=== PATIENT | male | born 1965 | race Caucasian/White ===

== ENCOUNTER 2017-12-31 18:33 | Inpatient (IN) | payer MEDICARE, MEDICAID ==
[2018-01-01] MEDS ORDERED: OLANZapine ORAL DISINTEGRATING TAB 5MG PO (01:00)
[2018-01-01] MEDS ORDERED: MAALOX 30 ML SUSP *UDC PO (01:00)
[2018-01-01] MEDS ORDERED: hydrOXYzine 25 MG TAB PO (01:00)
[2018-01-01] MEDS: NICOTINE 21MG/24HR 1 EA TRANSDERMAL TD ×2 (01:00→09:00)
[2018-01-01] MEDS: traZODone 50 MG TAB PO (02:37)
[2018-01-01] MEDS: busPIRone 5 MG TAB PO ×3 (11:41→20:45)
[2018-01-01] MEDS: GABAPENTIN 300 MG CAP PO ×3 (11:41→20:45)
[2018-01-01] MEDS: hydrOXYzine 50 MG TAB PO (11:41)
[2018-01-01] MEDS: NORTRIPTYLINE 25 MG CAP PO (12:18)
[2018-01-01] MEDS: IBUPROFEN 400 MG TAB PO (20:45)
[2018-01-02] MEDS ORDERED: UNRESOLVED CLARIFICATION ENTRY XX (00:01)
[2018-01-02] MEDS: NICOTINE 21MG/24HR 1 EA TRANSDERMAL TD (09:00)
[2018-01-02] MEDS: GABAPENTIN 300 MG CAP PO ×3 (09:49→20:15)
[2018-01-02] MEDS: busPIRone 5 MG TAB PO ×3 (09:49→20:15)
[2018-01-02] MEDS: NORTRIPTYLINE 25 MG CAP PO (09:50)
[2018-01-02] MEDS: MOM 30ML SUSPENSION UDC PO (09:52)
[2018-01-02] MEDS: IBUPROFEN 400 MG TAB PO (11:50)
[2018-01-02] MEDS: MAGNESIUM CITRATE 300 ML BTL PO (17:16)
[2018-01-02] MEDS: KETOROLAC TROMETHAMINE 10 MG TAB PO (20:34)
[2018-01-02] MEDS: ACETAMINOPHEN TAB 650MG DOSE (2X325MG) PO (23:20)
[2018-01-03] MEDS: traZODone 50 MG TAB PO (00:30)
[2018-01-03] MEDS: ACETAMINOPHEN TAB 650MG DOSE (2X325MG) PO (05:53)
[2018-01-03] MEDS: GABAPENTIN 300 MG CAP PO (08:48)
[2018-01-03] MEDS: KETOROLAC TROMETHAMINE 10 MG TAB PO (08:49)
[2018-01-03] MEDS: NORTRIPTYLINE 25 MG CAP PO (08:49)
[2018-01-03] MEDS: busPIRone 5 MG TAB PO (08:49)
[2018-01-03] MEDS: NICOTINE 21MG/24HR 1 EA TRANSDERMAL TD (08:49)
== END 2018-01-03 11:35 | disposition home or self-care (01) | DRG 882 ==
LOC: M ED 18:33 → M ED INP 22:08 → M PSY 23:36
DX: F43.23 Adjustment disorder with mixed anxiety and depressed mood (principal); R45.851 Suicidal ideations; F10.10 Alcohol abuse, uncomplicated; F12.90 Cannabis use, unspecified, uncomplicated; F11.90 Opioid use, unspecified, uncomplicated; Z79.899 Other long term (current) drug therapy; Z88.8 Allergy status to other drugs, medicaments and biological substances; M54.5 Low back pain; I25.10 Atherosclerotic heart disease of native coronary artery without angina pectoris; I25.2 Old myocardial infarction; G89.29 Other chronic pain; I10 Essential (primary) hypertension; F17.200 Nicotine dependence, unspecified, uncomplicated; Z88.5 Allergy status to narcotic agent

== ENCOUNTER 2018-04-04 13:30 | Emergency (ER) | payer MEDICARE, MEDICAID ==
[2018-04-04 14:47] LABS: BASO # 0.1 10^3/uL (0.0-0.2); BASO % 0.6 % (0.0-1.0); EOS % 0.4 % (0.0-3.0); HEMATOCRIT 42.8 % (42.0-52.0); HEMOGLOBIN 15.3 g/dl (13.5-17.5); IMMATURE GRANULOCYTE % 0.3 % (0-3.0); LYMPH # 1.6 10^3/uL (1.5-4.5); LYMPH % 20.3 % (24.0-44.0); MEAN CORPUSCULAR HEMOGLOBIN 32.8 pg (27.0-33.0); MEAN CORPUSCULAR HGB CONC 35.7 g/dl (32.0-36.5); MEAN CORPUSCULAR VOLUME 91.6 fl (80.0-96.0); MONO # 0.4 10^3/uL (0.0-0.8); MONO % 5.5 % (0.0-5.0); NEUTROPHILS # 5.7 10^3/uL (1.8-7.7); NEUTROPHILS % 72.9 % (36.0-66.0); PLATELET COUNT, AUTOMATED 194 10^3/uL (150-450); RED BLOOD COUNT 4.67 10^6/uL (4.30-6.10); RED CELL DISTRIBUTION WIDTH 12.3 % (11.5-14.5); WHITE BLOOD COUNT 7.8 10^3/uL (4.0-10.0)
[2018-04-04 14:50] LABS: KETONE, URINE AUTO RFX NEGATIVE (NEGATIVE); LEUKOCYTE ESTERASE UR AUTO RFX NEGATIVE (NEGATIVE); NITRITE, URINE AUTO RFX NEGATIVE (NEGATIVE); RBC, URINE AUTO RFX 1 /HPF (0-3); SPECIFIC GRAVITY UR AUTO RFX 1.003 (1.002-1.035); SQUAM EPITHELIAL CELL UR AURFX 0 /HPF (0-6); WBC, URINE AUTO RFX 0 /HPF (0-3)
[2018-04-04 15:09] LABS: ANION GAP 7 MEQ/L (8-16); BLOOD UREA NITROGEN 12 MG/DL (7-18); CALCIUM LEVEL 8.9 MG/DL (8.5-10.1); CARBON DIOXIDE LEVEL 28 MEQ/L (21-32); CHLORIDE LEVEL 106 MEQ/L (98-107); CREATININE FOR GFR 1.23 MG/DL (0.70-1.30); GLOMERULAR FILTRATION RATE > 60.0 (>56); GLUCOSE, FASTING 99 MG/DL (70-100); POTASSIUM SERUM 3.7 MEQ/L (3.5-5.1); SODIUM LEVEL 141 MEQ/L (136-145)
[2018-04-04 15:46] LABS: TROPONIN I < 0.02 NG/ML (< 0.10)
[2018-04-04 15:47] LABS: CK-MB VALUE MASS < 1.0 NG/ML (<3.6); CPK CREATINE PHOSPHOKINASE 85 U/L (39-308); MB/CK RELATIVE INDEX 1.17 (< OR =4)
[2018-04-04] MEDS: NS 1,000 ML IV (16:21)
[2018-04-04] MEDS: ONDANSETRON 4MG/2ML VIAL (J2405) IV (16:21)
[2018-04-04 16:28] LABS: CHLAMYDIA DNA AMPLIFICATION NEGATIVE (NEGATIVE); GC DNA AMPLIFICATION NEGATIVE (NEGATIVE)
[2018-04-04] MEDS ORDERED: cefTRIAXone SOD 250 MG VIAL (J0696) IV (17:00)
[2018-04-04] MEDS: cefTRIAXone SOD 250 MG in D5W MINI-BAG PLUS 50 ML IV (17:12)
== END 2018-04-04 18:10 | disposition home or self-care (01) ==
LOC: M ED 13:30
DX: R30.0 Dysuria (principal); N45.2 Orchitis; H93.19 Tinnitus, unspecified ear; I25.10 Atherosclerotic heart disease of native coronary artery without angina pectoris; I25.2 Old myocardial infarction; F17.200 Nicotine dependence, unspecified, uncomplicated
CPT/HCPCS: J2405

== ENCOUNTER 2018-04-11 14:27 | Emergency (ER) | payer MEDICARE, MEDICAID ==
[2018-04-11 15:13] LABS: HEMATOCRIT 42.3 % (42.0-52.0); MEAN CORPUSCULAR HEMOGLOBIN 32.8 pg (27.0-33.0); MEAN CORPUSCULAR HGB CONC 35.5 g/dl (32.0-36.5); MEAN CORPUSCULAR VOLUME 92.6 fl (80.0-96.0); PLATELET COUNT, AUTOMATED 198 10^3/uL (150-450); RED BLOOD COUNT 4.57 10^6/uL (4.30-6.10)
[2018-04-11 15:17] LABS: KETONE, URINE AUTO RFX NEGATIVE (NEGATIVE); LEUKOCYTE ESTERASE UR AUTO RFX NEGATIVE (NEGATIVE); NITRITE, URINE AUTO RFX NEGATIVE (NEGATIVE); RBC, URINE AUTO RFX 2 /HPF (0-3); SQUAM EPITHELIAL CELL UR AURFX 0 /HPF (0-6); WBC, URINE AUTO RFX 1 /HPF (0-3)
[2018-04-11] MEDS: NAPROXEN 250 MG TAB PO (15:45)
== END 2018-04-11 16:13 | disposition home or self-care (01) ==
LOC: M ED 14:27
DX: N45.2 Orchitis (principal); I10 Essential (primary) hypertension; G89.29 Other chronic pain; Z88.5 Allergy status to narcotic agent; Z88.8 Allergy status to other drugs, medicaments and biological substances; Z91.048 Other nonmedicinal substance allergy status; F17.210 Nicotine dependence, cigarettes, uncomplicated
CPT/HCPCS: 85027

== ENCOUNTER → 2018-04-22 | Outpatient (REF) | payer MEDICARE, MEDICAID ==
[2018-04-22 13:53] LABS: APPEARANCE, URINE CLEAR (CLEAR); BACTERIA, URINE AUTO NEGATIVE (NEGATIVE); BILIRUBIN, URINE AUTO NEGATIVE (NEGATIVE); BLOOD, URINE BLOOD NEGATIVE (NEGATIVE); COLOR, URINE YELLOW (YELLOW); GLUCOSE, URINE (UA) AUTO NEGATIVE (NEGATIVE); KETONE, URINE AUTO TRACE mg/dL (NEGATIVE); LEUKOCYTE ESTERASE, URINE AUTO NEGATIVE (NEGATIVE); MUCUS, URINE SMALL (NEGATIVE); NITRITE, URINE AUTO NEGATIVE (NEGATIVE); PROTEIN, URINE AUTO NEGATIVE (NEGATIVE); RBC, URINE AUTO 9 /HPF (0-3); SQUAMOUS EPITHELIAL CELL UR AU 0 /HPF (0-6); WBC, URINE AUTO 0 /HPF (0-3)
[2018-04-22 15:35] LABS: CHLAMYDIA DNA AMPLIFICATION NEGATIVE (NEGATIVE); GC DNA AMPLIFICATION NEGATIVE (NEGATIVE)
== END ==
LOC: M SMT 13:12
DX: N45.2 Orchitis (principal); N50.819 Testicular pain, unspecified; N48.89 Other specified disorders of penis
CPT/HCPCS: 81001

== ENCOUNTER → 2018-04-24 | Outpatient (CLI) | payer MEDICARE, MEDICAID | LOC: M RAD 10:44 | DX: N50.819 Testicular pain, unspecified (principal) | CPT/HCPCS: 74176 ==

== ENCOUNTER 2018-11-10 01:09 | Emergency (ER) | payer MEDICARE, MEDICAID ==
[~2018-11-10] VITALS: Ht 175.3 cm; Wt 77.3 kg
[~2018-11-10 01:09] MED LIST: BUSP5TA PO; CEPH500C; CLON1TAB8 PO; CLOT1CRE; DOXY100C37 PO; GABA-843 PO; HYDRO50TAB PO; IBUP80TA PO; KETO10TAB PO; NAPR-837 PO; NORT25CA2 PO; OXYC10TA3 PO; PROTPAK PO; PYRI1TAB5 PO
[2018-11-10] MEDS ORDERED: PANT40TA3 (01:27)
[2018-11-10] MEDS ORDERED: LORA-243 (01:27)
[2018-11-10] MEDS ORDERED: ALBU17IN2 INH (03:15)
[2018-11-10] MEDS ORDERED: NORCO, ANEXSIA 5/325MG TABLET (HYDROcodone/ACETAMINOPHEN) PO ONE (03:15)
[2018-11-10] MEDS ORDERED: DOXY100C37 PO (03:15)
[2018-11-10] MEDS ORDERED: LISINOPRIL 20 MG TAB PO ONE (03:30)
[2018-11-10 03:33] VITALS: BP 160/108
[2018-11-10 03:34] VITALS: BP 146/108
--- NOTE | 2018-11-10 09:12 | REP ---
Clinical: Cough . Comparison: 04/04/2018 . Technique: PA and lateral. Findings: The mediastinum and cardiac silhouette are normal. The lung qiu are clear and without acute consolidation, effusion, or pneumothorax. The skeletal structures are intact and normal. Impression: 1. No acute cardiopulmonary process. Electronically Signed by Dima Tomas MD 11/10/2018 09:04 A
--- NOTE | 2018-11-10 11:18 | ECGEPIP ---
Stationary ECG Study [facility] - ED Test Date: 2018-11-10 Pat Name: LEIA LEY JR Department: Room: - Gender: M Director Of Enrollment: af : 1965 Requested By: Jorge Mane Order Number: [id number] Reading MD: Gigi Castro Measurements Intervals Serafina Rate: 97 P: 66 MA: 160 QRS: -3 QRSD: 93 T: 57 QT: 339 QTc: 432 Interpretive Statements SINUS RHYTHM ANTEROSEPTAL MYOCARDIAL INFARCTION, OF INDETERMINATE AGE NONSPECIFIC ST T WAVE CHANGES POSSIBLE LAE CW 06/25/[address] T WAVE CHANGES Electronically Signed On 11-10-2018 11:18:23 EDT by Gigi Castro
== END 2018-11-10 03:41 | disposition home or self-care (01) ==
LOC: M ED 01:09
DX: J40 Bronchitis, not specified as acute or chronic (principal); M54.9 Dorsalgia, unspecified; G89.29 Other chronic pain; F41.9 Anxiety disorder, unspecified; F17.200 Nicotine dependence, unspecified, uncomplicated; Z87.81 Personal history of (healed) traumatic fracture; Z91.048 Other nonmedicinal substance allergy status; Z88.8 Allergy status to other drugs, medicaments and biological substances; Z88.5 Allergy status to narcotic agent; Z79.899 Other long term (current) drug therapy

== ENCOUNTER → 2019-05-13 | Outpatient (REF) | payer MEDICARE, MEDICAID ==
[~2019-05-13] MED LIST changes: +HYDR1TAB33 PO; -HYDRO50TAB PO; +LORA-243; +PANT40TA3; +PROV108A INH
[2019-05-13 13:05] LABS: BASO # 0.1 10^3/uL (0.0-0.2); BASO % 0.9 % (0.0-1.0); EOS # 0.7 10^3/uL (0.0-0.5); EOS % 7.4 % (0.0-3.0); HEMATOCRIT 46.6 % (42.0-52.0); HEMOGLOBIN 15.6 g/dl (13.5-17.5); LYMPH # 2.4 10^3/uL (1.5-5.0); LYMPH % 27.1 % (24.0-44.0); MEAN CORPUSCULAR HEMOGLOBIN 31.1 pg (27.0-33.0); MEAN CORPUSCULAR HGB CONC 33.5 g/dl (32.0-36.5); MEAN CORPUSCULAR VOLUME 92.8 fl (80.0-96.0); MONO # 0.7 10^3/uL (0.0-0.8); MONO % 7.3 % (0.0-5.0); NEUTROPHILS # 5.1 10^3/uL (1.5-8.5); NEUTROPHILS % 57.1 % (36.0-66.0); PLATELET COUNT, AUTOMATED 191 10^3/uL (150-450); RED BLOOD COUNT 5.02 10^6/uL (4.30-6.10); WHITE BLOOD COUNT 8.9 10^3/uL (4.0-10.0)
[2019-05-13 13:23] LABS: ALBUMIN 4.7 GM/DL (3.2-5.2); ALT/SGPT 13 U/L (12-78); BILIRUBIN,TOTAL 0.8 MG/DL (0.2-1.0); BLOOD UREA NITROGEN 15 MG/DL (7-18); CALCIUM LEVEL 9.3 MG/DL (8.5-10.1); CARBON DIOXIDE LEVEL 30 MEQ/L (21-32); CHLORIDE LEVEL 108 MEQ/L (98-107); CHOLESTEROL LEVEL 165 MG/DL (<200); CHOLESTEROL RISK RATIO 4.342 (<5); CREATININE FOR GFR 1.27 MG/DL (0.70-1.30); FREE T4 1.28 NG/DL (0.76-1.46); GLOMERULAR FILTRATION RATE > 60.0 (>56); GLUCOSE, FASTING 83 MG/DL (70-100); HDL CHOLESTEROL 38 MG/DL (>40); LDL CHOLESTEROL 111 MG/DL (<100); NON-HDL-C 127 MG/DL; POTASSIUM SERUM 4.2 MEQ/L (3.5-5.1); SODIUM LEVEL 143 MEQ/L (136-145); TOTAL PROTEIN 7.5 GM/DL (6.4-8.2); TRIGLYCERIDES LEVEL 80 MG/DL (<150)
== END ==
LOC: M SFHCADAM 08:39
PROVIDERS: ATTEND Physician Assistant Medical
DX: K21.9 Gastro-esophageal reflux disease without esophagitis (principal); F12.10 Cannabis abuse, uncomplicated; I10 Essential (primary) hypertension; F41.0 Panic disorder [episodic paroxysmal anxiety]
CPT/HCPCS: 80053; 80061; 84439; 84443; 84600; 85025; G0480

== ENCOUNTER → 2019-05-23 | Outpatient (REF) | payer MEDICARE, MEDICAID ==
[2019-05-23 10:59] LABS: PLATELET COUNT, AUTOMATED 229 10^3/uL (150-450)
[2019-05-23 11:08] LABS: INR 1.06; PROTHROMBIN TIME 13.5 SECONDS (11.8-14.0)
[2019-05-23 11:09] LABS: PARTIAL THROMBOPLASTIN TIME 26.9 SECONDS (25.0-38.4)
== END ==
LOC: M LABDRAW1 09:14
PROVIDERS: ATTEND Physical Medicine & Rehabilitation
DX: Z01.812 Encounter for preprocedural laboratory examination (principal); M50.320 Other cervical disc degeneration, mid-cervical region, unspecified level; Z79.899 Other long term (current) drug therapy

== ENCOUNTER → 2019-05-28 | Outpatient (CLI) | payer MEDICARE, MEDICAID ==
--- NOTE | 2019-05-28 15:13 | REP ---
REASON FOR EXAM: Testicular pain. COMPARISON: 03/15/2018 which showed a 7 mm sized tunica cyst on the right and a left-sided varicocele. Incidental bilateral spermatoceles were also noted. Today's examination shows the testicles to be essentially unchanged in size, shape, and echo pattern. The right testicle measures 5.2 x 2 x 2.8 cm and the left testicle measure 4.6 x 1.7 x 2.5 cm. The testicular parenchymal echo pattern and vascular pattern are within normal limits bilaterally and essentially unchanged. The cysts seen on the right is unchanged and the bilateral spermatoceles are unchanged. The right testicular RI is 0.43 and the left is 0.60. Dzso-wt-[id number] imaging shows no evidence of a mass. There is slight heterogeneity in the testicular echo pattern but this is unchanged. The left-sided varicocele seen on the prior exam is also noted today and appears to be unchanged. IMPRESSION: No significant change when compared to the prior exam with findings as described above. Electronically Signed by Sanchez Felipe DO 05/28/2019 03:51 P
== END ==
LOC: M RAD 12:13
PROVIDERS: ATTEND Nurse Practitioner Family
DX: N44.1 Cyst of tunica albuginea testis (principal); N50.89 Other specified disorders of the male genital organs

== ENCOUNTER → 2019-06-02 | Outpatient (REF) | payer MEDICARE, MEDICAID ==
[2019-06-02 14:12] LABS: APPEARANCE, URINE CLEAR (CLEAR); BACTERIA, URINE AUTO NEGATIVE (NEGATIVE); BILIRUBIN, URINE AUTO NEGATIVE (NEGATIVE); BLOOD, URINE BLOOD 1+ (NEGATIVE); COLOR, URINE YELLOW (YELLOW); GLUCOSE, URINE (UA) AUTO NEGATIVE (NEGATIVE); KETONE, URINE AUTO NEGATIVE (NEGATIVE); LEUKOCYTE ESTERASE, URINE AUTO NEGATIVE (NEGATIVE); MUCUS, URINE SMALL (NEGATIVE); NITRITE, URINE AUTO NEGATIVE (NEGATIVE); PROTEIN, URINE AUTO NEGATIVE (NEGATIVE); RBC, URINE AUTO 4 /HPF (0-3); SPECIFIC GRAVITY URINE AUTO 1.013 (1.002-1.035); SQUAMOUS EPITHELIAL CELL UR AU 0 /HPF (0-6); UROBILINOGEN, URINE AUTO 0.2 mg/dL (0.0-2.0); WBC, URINE AUTO 0 /HPF (0-3)
[2019-06-02 15:52] LABS: CHLAMYDIA DNA AMPLIFICATION NEGATIVE (NEGATIVE); GC DNA AMPLIFICATION NEGATIVE (NEGATIVE)
== END ==
LOC: M SMT 13:30
PROVIDERS: ATTEND Nurse Practitioner Family
DX: N50.819 Testicular pain, unspecified (principal)
CPT/HCPCS: 81001; 87086; 87491; 87591; G0463

== ENCOUNTER → 2019-06-05 | Outpatient (CLI) | payer MEDICARE, MEDICAID ==
--- NOTE | 2019-06-05 16:07 | REP ---
REASON: Chronic back pain. PRIORS: None. After the intravenous administration of 22.0 millicuries of Technetium 99M MDP a total body bone scan was obtained. There is minimal increased radionuclide accumulation seen at the level of the superior endplate of L2 on the left. This is likely the result of degenerative change. No other areas of frankly abnormal increased or decreased radionuclide accumulation is seen in the imaged axial or appendicular skeleton. IMPRESSION: Minimal findings as described above. Consider MRI. Electronically Signed by Sanchez Felipe DO 06/05/2019 04:58 P
== END ==
LOC: M RAD 10:26
PROVIDERS: ATTEND Physical Medicine & Rehabilitation
DX: M47.812 Spondylosis without myelopathy or radiculopathy, cervical region (principal)
CPT/HCPCS: 78306; A9503

== ENCOUNTER → 2019-11-10 | Outpatient (REF) | payer MEDICARE, MEDICAID ==
[~2019-11-10] MED LIST changes: +BREO1INH
[2019-11-10 17:16] LABS: BASO # 0.1 10^3/uL (0.0-0.2); BASO % 0.6 % (0.0-1.0); EOS # 0.1 10^3/uL (0.0-0.5); EOS % 0.8 % (0.0-3.0); HEMATOCRIT 45.8 % (42.0-52.0); HEMOGLOBIN 15.4 g/dl (13.5-17.5); LYMPH # 2.5 10^3/uL (1.5-5.0); LYMPH % 31.6 % (24.0-44.0); MEAN CORPUSCULAR HEMOGLOBIN 31.4 pg (27.0-33.0); MEAN CORPUSCULAR HGB CONC 33.6 g/dl (32.0-36.5); MEAN CORPUSCULAR VOLUME 93.5 fl (80.0-96.0); MONO # 0.5 10^3/uL (0.0-0.8); MONO % 6.4 % (0.0-5.0); NEUTROPHILS # 4.7 10^3/uL (1.5-8.5); NEUTROPHILS % 60.3 % (36.0-66.0); PLATELET COUNT, AUTOMATED 182 10^3/uL (150-450); WHITE BLOOD COUNT 7.8 10^3/uL (4.0-10.0)
[2019-11-10 17:41] LABS: ALBUMIN 4.4 GM/DL (3.2-5.2); ALT/SGPT 13 U/L (12-78); BLOOD UREA NITROGEN 13 MG/DL (7-18); C REACTIVE PROTEIN QUANTITATIV < 0.30 MG/DL (0.00-0.30); CARBON DIOXIDE LEVEL 31 MEQ/L (21-32); CHLORIDE LEVEL 106 MEQ/L (98-107); CREATININE FOR GFR 1.06 MG/DL (0.70-1.30); FREE T4 1.16 NG/DL (0.76-1.46); GLOMERULAR FILTRATION RATE > 60.0 (>56); GLUCOSE, FASTING 78 MG/DL (70-100); LDH LACTATE DEHYDROGENASE 112 U/L (87-241); POTASSIUM SERUM 4.3 MEQ/L (3.5-5.1); SODIUM LEVEL 140 MEQ/L (136-145); TOTAL PROTEIN 7.1 GM/DL (6.4-8.2)
[2019-11-10 17:52] LABS: ERYTHROCYTE SEDIMENTATION RATE 1 mm/hr (0-20)
== END ==
LOC: M SFHCADAM 15:20
PROVIDERS: ATTEND Family Medicine
DX: R63.4 Abnormal weight loss (principal); M54.5 Low back pain; F32.9 Major depressive disorder, single episode, unspecified; R07.81 Pleurodynia

== ENCOUNTER → 2019-11-10 | Outpatient (CLI) | payer MEDICARE, MEDICAID ==
--- NOTE | 2019-11-10 17:48 | REP ---
HISTORY: Rib pain. COMPARISON: 11/10/2018. The lung qiu are hyperexpanded but clear and essentially unchanged from the prior exam. No acute patchy parenchymal opacities or pleural effusions have developed. The heart is not enlarged. The osseous structures are stable and intact. IMPRESSION: Lung field hyperexpansion without evidence of acute cardiopulmonary disease. Electronically Signed by Sanchez Felipe DO 11/11/2019 08:46 A
--- NOTE | 2019-11-10 17:50 | REP ---
LUMBOSACRAL SPINE, FIVE VIEWS: Five views of the lumbosacral spine are performed. There is no compression fracture or malalignment. There are metallic disc spacers at L4-5 and L5-S1 levels. There is mild to moderate diffuse spurring. Moderate sclerosis and spurring is seen at the facet joints of L5-S1. Posterior elements appear intact. There is curvature of the thoracolumbar spine convex to the right. IMPRESSION: Metallic disc spacers at L4-5 and L5-S1. Normal alignment with mild curvature toward the right. Mild degenerative changes. Electronically Signed by Krunal Carrington MD 11/11/2019 10:28 A
== END ==
LOC: M ADAMS 15:24
PROVIDERS: ATTEND Family Medicine
DX: M54.5 Low back pain (principal); R07.81 Pleurodynia; R63.4 Abnormal weight loss; F32.9 Major depressive disorder, single episode, unspecified
CPT/HCPCS: 71046; 72110; 80053; 83615; 84439; 84443; 85025; 85652; 86140; G0463

== ENCOUNTER → 2020-04-05 | Outpatient (CLI) | payer MEDICARE, MEDICAID ==
[~2020-04-05] MED LIST changes: -BREO1INH; +BREO1INH INH; -CLOT1CRE; +CLOT1CRE51; -LORA-243; +LORA-243 PO; +PANT40TA29 PO; -PANT40TA3
--- NOTE | 2020-04-09 08:32 | REP ---
LEFT ANKLE X-RAY: 4-VIEWS COMPARISON: None. FINDINGS: There is no evidence of an acute fracture. The mortise is intact. There is no evidence of significant soft tissue swelling. IMPRESSION: Negative examination. MTDD
== END ==
LOC: M ADAMS 15:18
PROVIDERS: ATTEND Physician Assistant
DX: M25.572 Pain in left ankle and joints of left foot (principal)

== ENCOUNTER 2020-05-31 09:16 | Emergency (ER) | payer MEDICARE, MEDICAID ==
[~2020-05-31] VITALS: Ht 175.3 cm; Wt 61.4 kg
--- NOTE | 2020-05-31 09:41 | REPVR ---
PROCEDURE INFORMATION: Exam: XR Right Foot Exam date and time: 05/31/2020 9:24 AM Age: 55 years old Clinical indication: Injury or trauma; Other: Stepped on glass; Laceration; Foot; Right; Foreign body involvement not specified; Additional info: Laceration, R/O foreign body TECHNIQUE: Imaging protocol: XR Right foot. Views: 1 or 2 views. COMPARISON: DX ANKLE COMPLETE 04/05/2020 3:04 PM FINDINGS: Bones/joints: Incidental accessory navicular. No acute fracture. No dislocation. Soft tissues: No radiopaque foreign body. IMPRESSION: No acute osseous abnormality or radiopaque foreign body. Electronically signed by: Radha Ibarra On 05/31/2020 09:41:15 AM
[2020-05-31] MEDS ORDERED: DERMABOND TOPICAL SKIN ADHESIVE TOP ONE (10:15)
[2020-05-31 10:43] VITALS: BP 132/89
== END 2020-05-31 11:10 | disposition home or self-care (01) ==
LOC: M ED 09:16 → EDBD 09:16 → M ED 11:10
DX: S91.114A Laceration without foreign body of right lesser toe(s) without damage to nail, initial encounter (principal); W25.XXXA Contact with sharp glass, initial encounter; Y92.098 Other place in other non-institutional residence as the place of occurrence of the external cause; F32.9 Major depressive disorder, single episode, unspecified; F41.9 Anxiety disorder, unspecified; M54.9 Dorsalgia, unspecified; J44.9 Chronic obstructive pulmonary disease, unspecified; I10 Essential (primary) hypertension; F17.200 Nicotine dependence, unspecified, uncomplicated; Z88.5 Allergy status to narcotic agent; Z88.8 Allergy status to other drugs, medicaments and biological substances; Z91.048 Other nonmedicinal substance allergy status; Z79.899 Other long term (current) drug therapy; Z79.1 Long term (current) use of non-steroidal anti-inflammatories (NSAID)

== ENCOUNTER → 2021-02-10 | Outpatient (CLI) | payer MEDICARE, MEDICAID ==
[~2021-02-10] MED LIST changes: -DOXY100C37 PO; +DOXY1CAP62 PO; +GABA-282 PO; -GABA-843 PO
--- NOTE | 2021-02-10 15:22 | REP ---
INDICATION: OTHER INSTABILITY. COMPARISON: None. TECHNIQUE: Multiple views FINDINGS: The glenohumeral and acromioclavicular relationships are normal. There is no fracture, dislocation, or subluxation. There is no destructive osseous lesion. IMPRESSION: Within normal limits <Electronically signed by Sanchez Felipe > 02/10/21 [id number]
== END ==
LOC: M SOG 14:14
PROVIDERS: ATTEND Orthopaedic Surgery Sports Medicine
DX: M25.311 Other instability, right shoulder (principal)